=== PATIENT | male | born 1955 | race Caucasian/White ===

== ENCOUNTER 2016-08-13 01:28 | Day surgery (SDC) | payer OTHER ==
[~2016-08-13 01:28] MED LIST: GABA-502 PO; OXYC10TA8 PO; SERT50TA9 PO; ZYL100 PO
[2016-08-13] MEDS ORDERED: 0.9% Sodium Chloride 1,000 ML IV SCH (06:00)
[2016-08-13] MEDS ORDERED: fentaNYL-PF 50 mCg/mL 2 mL Inj IVPUSH PRN (06:00)
[2016-08-13] MEDS ORDERED: Sodium Chloride LOK Flush 10 mL Syringe IV PRN (06:00)
[2016-08-13] MEDS ORDERED: ASPI-973 PO (07:34)
[2016-08-13] MEDS ORDERED: DULO60CA61 PO (07:34)
== END 2016-08-13 23:59 | disposition home or self-care (01) ==
LOC: END 01:28
PROVIDERS: ATTEND Internal Medicine Gastroenterology
DX: I86.4 Gastric varices (principal); Z53.20 Procedure and treatment not carried out because of patient's decision for unspecified reasons

== ENCOUNTER 2016-09-10 12:17 | Day surgery (SDC) | payer OTHER ==
[~2016-09-10] VITALS: Ht 170.2 cm; Wt 108.9 kg
[~2016-09-10 12:17] MED LIST changes: +0.9% Sodium Chloride 1,000 ML IV SCH; +ASPI-973 PO; +DULO60CA61 PO; -SERT50TA9 PO; +Sodium Chloride LOK Flush 10 mL Syringe IV PRN; +fentaNYL-PF 50 mCg/mL 2 mL Inj IVPUSH PRN
[2016-09-10 12:31] VITALS: BP 130/78; PULSE 71; RESP 18; O2SAT 94
[2016-09-10 13:54] VITALS: BP 122/82; PULSE 69; RESP 15; O2SAT 93
[2016-09-10 14:04] VITALS: BP 144/84; PULSE 71; RESP 15; O2SAT 92
[2016-09-10 14:13] VITALS: BP 142/84; PULSE 71; RESP 15; O2SAT 91
--- NOTE | 2016-09-11 00:07 | ENDO ---
[address] [address] ENDOSCOPY PROCEDURE PATIENT: JONAS HILL : 1955 MR#: [id number] ADMIT: 09/10/2016 JOB ID: [id number] DATE: 09/10/2016 PRIMARY PROVIDER: Anthony Irwin MD PROCEDURE: Esophagogastroduodenoscopy. INDICATIONS: This is a 61-year-old male with a history of cirrhosis and varices. He reports for surveillance. EQUIPMENT: GIF-H180-J. SEDATION: 5 mg Versed, 100 mcg fentanyl. COMPLICATIONS: None identified. PROCEDURE INFORMATION: After the risks and benefits were explained, written and verbal informed consent was obtained. The patient was brought into the endoscopy suite and placed into the left lateral decubitus position. Sedation was achieved using the above-stated medications with the addition of oxygen via nasal cannula. The scope was introduced into the mouth and advanced to the second portion of the duodenum. The scope was slowly withdrawn to carefully examine the mucosa for any defects or lesions. Retroflexed views were accomplished in the stomach. The stomach was decompressed, the scope removed from the patient who tolerated the procedure well. FINDINGS: 1. Duodenum: No pathology identified from the bulb through to the second portion. 2. Stomach: No ulcers, no outlet obstruction. No mass lesions. The patient had a diffuse portal hypertensive gastropathy as before. I did not see any evidence of gastric varices including retroflexed views of the LES. 3. Esophagus: The squamocolumnar junction correlated with the top of the gastric folds. The GEJ was at about 39 cm from the incisors. No acute erosive changes. No strictures. No mass lesions. The patient had evidence of very small distal esophageal varices that fully flattened out with air insufflation. No high risk stigmata. ENDOSCOPIC DIAGNOSES: 1. Portal hypertensive gastropathy. 2. Very small distal esophageal varices. RECOMMENDATIONS: Repeat the EGD for variceal surveillance in 2-3 years.
== END 2016-09-10 23:59 | disposition home or self-care (01) ==
LOC: END 12:17
PROVIDERS: ATTEND Internal Medicine Gastroenterology
DX: I85.00 Esophageal varices without bleeding (principal); K76.6 Portal hypertension; K31.89 Other diseases of stomach and duodenum; K74.60 Unspecified cirrhosis of liver
CPT/HCPCS: 43235; G0500; J7030